=== PATIENT | male | born 1950 | race Asian ===

== ENCOUNTER 2020-11-01 14:34 | Inpatient (IN) | payer OTHER, MEDICAID, SELFPAY ==
[~2020-11-01] VITALS: Ht 162.6 cm; Wt 63.0 kg
[2020-11-01 14:43] VITALS: BP_SYST 78
[2020-11-01] MEDS ORDERED: NACL 0.9% 500 ML IV ONE (15:00)
[2020-11-01] MEDS ORDERED: HYDR-4037 PO (15:13)
[2020-11-01] MEDS ORDERED: ICOS1CAP PO (15:13)
[2020-11-01] MEDS ORDERED: BENZ-16 PO (15:13)
[2020-11-01] MEDS ORDERED: ROSU10TA2 PO (15:13)
[2020-11-01] MEDS ORDERED: APIX2.5T PO (15:13)
[2020-11-01] MEDS ORDERED: REN800 PO (15:13)
[2020-11-01] MEDS ORDERED: CARV12.548 PO (15:13)
[2020-11-01] MEDS ORDERED: SEN30 PO (15:13)
[2020-11-01] MEDS ORDERED: LEVE500T9 PO (15:13)
[2020-11-01] MEDS ORDERED: ISOS30TA6 PO (15:13)
[2020-11-01] MEDS ORDERED: NOREPINEPHRINE 4 MG/4 ML VIAL IV ONE (15:45)
[2020-11-01] MEDS ORDERED: NOREPINEPHRINE BITARTRATE 4 MG in NS 246 ML IV ONE (15:45)
[2020-11-01 16:22] LABS: ANION GAP 9 (5-15); CALCIUM 8.5 mg/dL (8.4-11.0); CHLORIDE 100 mmol/L (98-107); CREATININE 7.18 mg/dL (0.55-1.30); GLUCOSE 110 mg/dL (70-99); POTASSIUM 3.2 mmol/L (3.5-5.1); SODIUM SERUM 135 mmol/L (136-145); UREA NITROGEN, BLOOD 36 mg/dL (8-21)
[2020-11-01 16:24] LABS: BASOPHILS % (AUTO) 0.3 % (0.0-2.0); HEMATOCRIT 30.1 % (36-54); HEMOGLOBIN 10.2 g/dL (14.0-18.0); LYMPHOCYTES # (AUTO) 0.3 K/uL (1.0-5.5); LYMPHOCYTES % (AUTO) 7.9 % (20.5-51.5); MEAN CORPUSCULAR HEMOGLOBIN 34 pg (27-31); MEAN CORPUSCULAR HGB CONC 34 % (32-36); MEAN CORPUSCULAR VOLUME 101 fL (79.0-98.0); MONOCYTES # (AUTO) 0.6 K/uL (0.0-1.0); MONOCYTES % (AUTO) 12.9 % (1.7-9.3); NEUTROPHILS # (AUTO) 3.4 K/uL (1.8-7.7); NEUTROPHILS % (AUTO) 78.9 % (40.0-70.0); PLATELET COUNT (AUTO) 79 K/uL (130-430); RED BLOOD CELL COUNT(AUTO) 2.99 MIL/uL (4.2-6.2); RED CELL DISTRIBUTION WIDTH 13.3 % (9.0-15.0); WHITE BLOOD COUNT (AUTO) 4.3 K/uL (4.8-10.8)
[2020-11-01 16:35] LABS: ALANINE AMINOTRANSFERASE 38 U/L (12-78); ALBUMIN 2.8 g/dL (3.4-4.8); ASPARTATE AMINOTRANSFERASE 43 U/L (10-37); TOTAL BILIRUBIN 0.3 mg/dL (0.0-1.0)
[2020-11-01 17:07] LABS: INR 1.1 (0.80-1.20); PROTHROMBIN TIME 11.2 SECS (9.5-12.5)
[2020-11-01] MEDS ORDERED: NOREPINEPHRINE BITARTRATE 4 MG in NS 246 ML IV PRN (18:00)
[2020-11-01 18:57] LABS: THYROID STIMULATING HORMONE 0.1 uIu/mL (0.34-4.82)
[2020-11-02] MEDS ORDERED: NOREPINEPHRINE 4 MG/4 ML VIAL IV ONE (01:10)
[2020-11-02] MEDS: CARVEDILOL 6.25 MG TABLET (COREG) PO SCH ×2 (09:00→21:00)
[2020-11-02 09:04] LABS: BASOPHILS % (AUTO) 0.7 % (0.0-2.0); EOSINOPHILS % (AUTO) 0.1 % (0.0-4.0); HEMATOCRIT 33.1 % (36-54); HEMOGLOBIN 11.2 g/dL (14.0-18.0); LYMPHOCYTES # (AUTO) 0.6 K/uL (1.0-5.5); LYMPHOCYTES % (AUTO) 16.5 % (20.5-51.5); MEAN CORPUSCULAR HEMOGLOBIN 34 pg (27-31); MEAN CORPUSCULAR HGB CONC 34 % (32-36); MEAN CORPUSCULAR VOLUME 100 fL (79.0-98.0); MONOCYTES # (AUTO) 0.5 K/uL (0.0-1.0); MONOCYTES % (AUTO) 12.1 % (1.7-9.3); NEUTROPHILS # (AUTO) 2.6 K/uL (1.8-7.7); NEUTROPHILS % (AUTO) 70.6 % (40.0-70.0); PLATELET COUNT (AUTO) 82 K/uL (130-430); RED BLOOD CELL COUNT(AUTO) 3.32 MIL/uL (4.2-6.2); RED CELL DISTRIBUTION WIDTH 13.4 % (9.0-15.0); WHITE BLOOD COUNT (AUTO) 3.7 K/uL (4.8-10.8)
[2020-11-02 09:33] LABS: ALANINE AMINOTRANSFERASE 45 U/L (12-78); ANION GAP 19 (5-15); ASPARTATE AMINOTRANSFERASE 39 U/L (10-37); CALCIUM 7.6 mg/dL (8.4-11.0); CHLORIDE 99 mmol/L (98-107); GLUCOSE 88 mg/dL (70-99); POTASSIUM 3.6 mmol/L (3.5-5.1); SODIUM SERUM 139 mmol/L (136-145); TOTAL BILIRUBIN 0.3 mg/dL (0.0-1.0); UREA NITROGEN, BLOOD 47 mg/dL (8-21)
[2020-11-02 09:57] LABS: CREATININE 8.49 mg/dL (0.55-1.30)
[2020-11-02] MEDS: CINACALCET HCL 30 MG TABLET PO SCH (11:14)
[2020-11-02] MEDS: SEVELAMER CARBONATE 800 MG TABLET PO SCH ×3 (11:15→18:15)
[2020-11-02] MEDS: ATORVASTATIN 20 MG TABLET PO SCH (11:15)
[2020-11-02] MEDS: levETIRAcetam 500 MG TABLET PO SCH ×2 (11:15→23:55)
[2020-11-02] MEDS: APIXABAN 2.5 MG TABLET PO SCH ×2 (11:17→23:55)
[2020-11-02 21:13] VITALS: BP_SYST 90
[2020-11-02] MEDS ORDERED: HEPARIN SODIUM,PORCINE 5,000 UNITS/ML VIAL ONE (22:08)
[2020-11-02] MEDS ORDERED: HEPARIN SODIUM,PORCINE 5,000 UNITS/ML VIAL MC ONE ×2 (22:15)
[2020-11-02] MEDS ORDERED: NS 250 ML IV ONE (23:45)
[2020-11-03 01:20] VITALS: BP_SYST 94
[2020-11-03 06:56] VITALS: BP_SYST 88
[2020-11-03 08:00] VITALS: BP_SYST 92
[2020-11-03 08:08] LABS: THYROID STIMULATING HORMONE 0.09 uIu/mL (0.36-3.74)
[2020-11-03] MEDS: CARVEDILOL 6.25 MG TABLET (COREG) PO SCH ×2 (08:51→21:00)
[2020-11-03] MEDS: SEVELAMER CARBONATE 800 MG TABLET PO SCH ×2 (08:51→11:07)
[2020-11-03] MEDS: CINACALCET HCL 30 MG TABLET PO SCH (08:52)
[2020-11-03] MEDS: levETIRAcetam 500 MG TABLET PO SCH ×2 (08:52→21:30)
[2020-11-03] MEDS: ATORVASTATIN 20 MG TABLET PO SCH (08:52)
[2020-11-03] MEDS: APIXABAN 2.5 MG TABLET PO SCH ×2 (10:28→21:27)
[2020-11-03 12:00] VITALS: BP_SYST 95
[2020-11-03 18:15] VITALS: BP_SYST 102
[2020-11-03 21:26] VITALS: BP_SYST 113
[2020-11-04 03:02] VITALS: BP_SYST 127
[2020-11-04] MEDS ORDERED: ACETAMINOPHEN 325 MG TABLET ONE (03:25)
[2020-11-04] MEDS ORDERED: ACETAMINOPHEN 325 MG TABLET PO PRN (03:30)
[2020-11-04 08:14] LABS: BASOPHILS % (AUTO) 0.6 % (0.0-2.0); EOSINOPHILS % (AUTO) 0.2 % (0.0-4.0); HEMATOCRIT 36.4 % (36-54); HEMOGLOBIN 12.2 g/dL (14.0-18.0); LYMPHOCYTES # (AUTO) 0.6 K/uL (1.0-5.5); MEAN CORPUSCULAR HEMOGLOBIN 34 pg (27-31); MEAN CORPUSCULAR HGB CONC 34 % (32-36); MEAN CORPUSCULAR VOLUME 101 fL (79.0-98.0); MONOCYTES # (AUTO) 0.4 K/uL (0.0-1.0); MONOCYTES % (AUTO) 8.1 % (1.7-9.3); NEUTROPHILS % (AUTO) 79.1 % (40.0-70.0); PLATELET COUNT (AUTO) 87 K/uL (130-430); RED CELL DISTRIBUTION WIDTH 13.5 % (9.0-15.0)
[2020-11-04 08:27] LABS: ALANINE AMINOTRANSFERASE 51 U/L (12-78); ALBUMIN 2.8 g/dL (3.4-4.8); ANION GAP 17 (5-15); ASPARTATE AMINOTRANSFERASE 51 U/L (10-37); CALCIUM 7.2 mg/dL (8.4-11.0); CHLORIDE 98 mmol/L (98-107); GLUCOSE 88 mg/dL (70-99); POTASSIUM 3.7 mmol/L (3.5-5.1); SODIUM SERUM 139 mmol/L (136-145); TOTAL BILIRUBIN 0.3 mg/dL (0.0-1.0)
[2020-11-04 08:45] LABS: WHITE BLOOD COUNT (AUTO) 5.1 K/uL (4.8-10.8)
[2020-11-04 09:01] VITALS: BP_SYST 119
[2020-11-04] MEDS: levETIRAcetam 500 MG TABLET PO SCH ×2 (09:01→20:36)
[2020-11-04] MEDS: APIXABAN 2.5 MG TABLET PO SCH ×2 (09:01→20:43)
[2020-11-04] MEDS: CINACALCET HCL 30 MG TABLET PO SCH (09:01)
[2020-11-04] MEDS: ATORVASTATIN 20 MG TABLET PO SCH (09:01)
[2020-11-04] MEDS: SEVELAMER CARBONATE 800 MG TABLET PO SCH ×3 (09:01→17:21)
[2020-11-04] MEDS: CARVEDILOL 6.25 MG TABLET (COREG) PO SCH ×2 (09:01→20:37)
[2020-11-04 09:23] LABS: UREA NITROGEN, BLOOD 63 mg/dL (8-21)
[2020-11-04 10:03] LABS: CREATININE 8.66 mg/dL (0.55-1.30)
[2020-11-04 12:00] VITALS: BP_SYST 138
[2020-11-04] MEDS ORDERED: HEPARIN SODIUM,PORCINE 5,000 UNITS/ML VIAL ONE (14:07)
[2020-11-04] MEDS ORDERED: HEPARIN SODIUM, PORCINE 10,000 UNITS/ 10 ML VIAL MC ONE (14:15)
[2020-11-04 15:00] VITALS: BP_SYST 117
[2020-11-04 20:00] VITALS: BP_SYST 115
[2020-11-05] VITALS: BP_SYST 110
[2020-11-05] MEDS: SEVELAMER CARBONATE 800 MG TABLET PO SCH ×3 (08:17→17:13)
[2020-11-05] MEDS: levETIRAcetam 500 MG TABLET PO SCH ×2 (08:18→21:00)
[2020-11-05] MEDS: CARVEDILOL 6.25 MG TABLET (COREG) PO SCH ×2 (08:18→21:00)
[2020-11-05] MEDS: CINACALCET HCL 30 MG TABLET PO SCH (08:18)
[2020-11-05] MEDS: ATORVASTATIN 20 MG TABLET PO SCH (08:18)
[2020-11-05] MEDS: APIXABAN 2.5 MG TABLET PO SCH ×2 (08:19→21:00)
[2020-11-05 10:11] VITALS: BP_SYST 106
[2020-11-05 12:00] VITALS: BP_SYST 134
[2020-11-05 16:00] VITALS: BP_SYST 98
[2020-11-05 20:00] VITALS: BP_SYST 105
[2020-11-06] VITALS: BP_SYST 105
[2020-11-06 08:16] LABS: BASOPHILS # (AUTO) 0.1 K/uL (0.0-0.2); BASOPHILS % (AUTO) 0.8 % (0.0-2.0); EOSINOPHILS % (AUTO) 0.2 % (0.0-4.0); HEMATOCRIT 31.6 % (36-54); HEMOGLOBIN 10.9 g/dL (14.0-18.0); LYMPHOCYTES # (AUTO) 0.8 K/uL (1.0-5.5); LYMPHOCYTES % (AUTO) 9.3 % (20.5-51.5); MEAN CORPUSCULAR HEMOGLOBIN 34 pg (27-31); MEAN CORPUSCULAR HGB CONC 34 % (32-36); MEAN CORPUSCULAR VOLUME 99 fL (79.0-98.0); MONOCYTES # (AUTO) 0.6 K/uL (0.0-1.0); MONOCYTES % (AUTO) 7.7 % (1.7-9.3); NEUTROPHILS # (AUTO) 6.6 K/uL (1.8-7.7); PLATELET COUNT (AUTO) 130 K/uL (130-430); RED CELL DISTRIBUTION WIDTH 13.2 % (9.0-15.0); WHITE BLOOD COUNT (AUTO) 8.1 K/uL (4.8-10.8)
[2020-11-06 08:38] LABS: ALANINE AMINOTRANSFERASE 45 U/L (12-78); ALBUMIN 2.6 g/dL (3.4-4.8); ANION GAP 20 (5-15); ASPARTATE AMINOTRANSFERASE 43 U/L (10-37); CHLORIDE 96 mmol/L (98-107); GLUCOSE 97 mg/dL (70-99); POTASSIUM 4.3 mmol/L (3.5-5.1); SODIUM SERUM 136 mmol/L (136-145); TOTAL BILIRUBIN 0.5 mg/dL (0.0-1.0); UREA NITROGEN, BLOOD 89 mg/dL (8-21)
[2020-11-06 09:00] LABS: CREATININE 9.86 mg/dL (0.55-1.30)
[2020-11-06] MEDS: CARVEDILOL 6.25 MG TABLET (COREG) PO SCH (09:22)
[2020-11-06] MEDS: SEVELAMER CARBONATE 800 MG TABLET PO SCH ×3 (09:22→17:10)
[2020-11-06 09:23] VITALS: BP_SYST 112
[2020-11-06] MEDS: CINACALCET HCL 30 MG TABLET PO SCH (09:23)
[2020-11-06] MEDS: levETIRAcetam 500 MG TABLET PO SCH (09:23)
[2020-11-06] MEDS: ATORVASTATIN 20 MG TABLET PO SCH (09:23)
[2020-11-06] MEDS: APIXABAN 2.5 MG TABLET PO SCH (09:32)
[2020-11-06] MEDS ORDERED: ALBUMIN HUMAN 25% 200 ML IV ONE ×2 (11:00→11:08)
[2020-11-06] MEDS ORDERED: COMMUNICATION ORDER XX ONE (11:15)
[2020-11-06] MEDS ORDERED: HEPARIN SODIUM,PORCINE 5,000 UNITS/ML VIAL MC PRN (11:15)
[2020-11-06] MEDS ORDERED: HEPARIN SODIUM,PORCINE 5,000 UNITS/ML VIAL MC ONE (11:15)
[2020-11-06 12:00] VITALS: BP_SYST 97
[2020-11-06 16:00] VITALS: BP_SYST 105
== END 2020-11-06 18:22 | disposition expired | DRG 871 ==
LOC: SED 14:34 → SIC 17:40 → STU 11-02 20:21
PROVIDERS: ADMIT Internal Medicine; ATTEND Internal Medicine
PROC: 5A1D70Z Performance of Urinary Filtration, Intermittent, Less than 6 Hours Per Day (ICD-10-PCS; 2020-11-02)
PROC: 5A1D70Z Performance of Urinary Filtration, Intermittent, Less than 6 Hours Per Day (ICD-10-PCS; 2020-11-04)
PROC: 5A1D70Z Performance of Urinary Filtration, Intermittent, Less than 6 Hours Per Day (ICD-10-PCS; 2020-11-05)
PROC: 0BH17EZ Insertion of Endotracheal Airway into Trachea, Via Natural or Artificial Opening (ICD-10-PCS; principal; 2020-11-06)
PROC: 5A1935Z Respiratory Ventilation, Less than 24 Consecutive Hours (ICD-10-PCS; 2020-11-06)
PROC: 5A12012 Performance of Cardiac Output, Single, Manual (ICD-10-PCS; 2020-11-06)
DX: A41.9 Sepsis, unspecified organism (principal); U07.1 COVID-19; J12.82 Pneumonia due to coronavirus disease 2019; N18.6 End stage renal disease; N25.81 Secondary hyperparathyroidism of renal origin; D61.818 Other pancytopenia; I42.0 Dilated cardiomyopathy; I13.2 Hypertensive heart and chronic kidney disease with heart failure and with stage 5 chronic kidney disease, or end stage renal disease; I50.20 Unspecified systolic (congestive) heart failure; I25.10 Atherosclerotic heart disease of native coronary artery without angina pectoris; E78.5 Hyperlipidemia, unspecified; G62.9 Polyneuropathy, unspecified; F03.90 Unspecified dementia, unspecified severity, without behavioral disturbance, psychotic disturbance, mood disturbance, and anxiety; E83.39 Other disorders of phosphorus metabolism; Z95.1 Presence of aortocoronary bypass graft; Z99.3 Dependence on wheelchair; Z79.01 Long term (current) use of anticoagulants; Z79.899 Other long term (current) drug therapy; Z86.74 Personal history of sudden cardiac arrest; I46.9 Cardiac arrest, cause unspecified
CPT/HCPCS: 36415; 71045; 80053; 80061; 83605; 84443-TC; 84484; 85025; 85610-TC; 85730-TC; 87040-TC; 87081; 93005; 93306; 96365; 96366; 99285; G0378; J1644; J7030; J7050